=== PATIENT | female | born 1950 | race African-American/Black ===

== ENCOUNTER 2016-06-12 01:35 | Emergency (ER) | payer OTHER ==
[~2016-06-12] VITALS: Ht 167.6 cm; Wt 93.9 kg
--- NOTE | 2016-06-12 01:58 | NUR ---
yannick richter at bedside to kira nelson.
[2016-06-12] MEDS ORDERED: TDAP [DIPH/PERTUSSIS/TET] 0.5 ML VIAL IM ONE ×2 (02:07→02:30)
--- NOTE | 2016-06-12 03:27 | NUR ---
Patient discharged to home in stable condition. Written and verbal after care instructions given. Patient verbalizes understanding of instruction. ambulatory with a steady gait noted. pt [id number] no acute distress noted, resp even and unlabored. pt family members at bedside to take pt home.
[2016-06-12 03:30] VITALS: BP 153/86
== END 2016-06-12 03:36 | disposition home or self-care (01) ==
LOC: ER 01:38
DX: S09.90XA Unspecified injury of head, initial encounter (principal); S01.81XA Laceration without foreign body of other part of head, initial encounter; Y04.2XXA Assault by strike against or bumped into by another person, initial encounter; Y93.89 Activity, other specified; Y92.89 Other specified places as the place of occurrence of the external cause; Y99.9 Unspecified external cause status
CPT/HCPCS: 90715; A4606; A6403; Z7610